=== PATIENT | male | born 1975 | race Caucasian/White ===

== ENCOUNTER 2018-02-28 07:06 | Emergency (ER) | payer OTHER | END 2018-02-28 09:35 | disposition home or self-care (01) | LOC: FTE 07:06 | DX: S69.92XA Unspecified injury of left wrist, hand and finger(s), initial encounter (principal); W19.XXXA Unspecified fall, initial encounter; Y92.9 Unspecified place or not applicable | CPT/HCPCS: 73110; 73110-LT; 73130-LT; 99283-25 ==